=== PATIENT | male | born 1955 | race Caucasian/White ===

== ENCOUNTER 2017-10-27 14:58 | Emergency (ER) | payer OTHER ==
[~2017-10-27] VITALS: Ht 182.8 cm; Wt 88.5 kg
[~2017-10-27 14:58] MED LIST: MOTRIN800 MG PO
[2017-10-27] MEDS ORDERED: CEPHALEXIN500 M1 PO (16:46)
== END 2017-10-27 16:50 | disposition home or self-care (01) ==
LOC: ED 14:58
DX: S51.811A Laceration without foreign body of right forearm, initial encounter (principal); W45.8XXA Other foreign body or object entering through skin, initial encounter; Y93.89 Activity, other specified; Y92.89 Other specified places as the place of occurrence of the external cause; Y99.8 Other external cause status